=== PATIENT | male | born 1950 | race Caucasian/White ===

== ENCOUNTER 2019-09-02 23:17 | Emergency (ER) | payer MEDICARE, SELFPAY ==
[2019-09-02 23:19] VITALS: BP 168/81; PULSE 60; RESP 18; TEMP 36.8; O2SAT 94; BMI 35.4
--- NOTE | 2019-09-02 23:35 | RAD_ITS ---
STUDY: X-RAY - RIGHT SHOULDER REASON FOR EXAM: Male, 68 years old. Shoulder dislocation pain TECHNIQUE: 7 view(s) of the shoulder. COMPARISON: Post reduction radiographs. FINDINGS: There is inferior likely anterior shoulder dislocation. There are no acute fractures.. There is soft tissue edema. Normal visualized pulmonary apex. There is thoracic dextroscoliosis with multilevel degenerative changes. RAD/Shoulder min 2 Views IMPRESSION: Inferior likely anterior shoulder dislocation No acute fracture Soft tissue edema Thoracic dextroscoliosis with multilevel degenerative changes Electronically Signed: Baltazar Wright, at 1:18 EDT Tel , Service support ,
--- NOTE | 2019-09-02 23:36 | ED.VIS.GEN ---
History of Present Illness Chief Complaint: Upper Extremity Injury Informant: Patient Narrative: Stated that he fell at home just prior to arrival. He walks with a cane in the cane slipped out from under him. He has a history of polio in the past and has difficulty ambulating from that. He has pain in his right shoulder with difficulty moving it secondary to pain. He is unsure if he broke a bone. EMS was called and they splinted him and gave him a dose of fentanyl and brought him in for further evaluation. No previous injuries to the shoulder. Current severity is moderate. Worse with movement. Relieved with resting and splinting. Denies any elbow or distal hand or wrist injury Past Medical History - Allergies and Home Meds Allergies/Adverse Reactions: Allergies No Known Allergies Allergy (Verified 09/02/19 23:21) Primary Care Physician: Tamiko Mckeon,Out of [NON-STAFF] - Prior records reviewed: Yes Past Medical History: - - Hypertension, polio Surgical History: - - Left lower extremity orthopedic surgery Smoking Status: Never smoker Alcohol: None Drugs: None Review of Systems General: Denies: Chills, Fever, Sweats Eyes: Denies: Visual changes - bilaterally, Diplopia ENT: Denies: Rhinorrhea, Sore throat Cardiovascular: Denies: Chest pain, Palpitations Respiratory: Denies: Dyspnea, Cough, Dyspnea on exertion Gastrointestinal: Denies: Abdominal pain, Nausea, Vomiting, Diarrhea, Melena, Hematochezia Genitourinary: Denies: Dysuria, Hematuria, Frequency Musculoskeletal: Reports: Extremity Pain - see HPI. Denies: Back pain Skin: Denies: Rash, Wounds Neurological: Denies: Headache, Weakness, Numbness Physical Exam Vital Signs/Narrative: Vital Signs Temp Pulse Resp BP Pulse Ox 09/02/19 23:19 98.3 F 60 18 168/81 H 94 General: Well nourished, Well developed, No Acute Distress Head: Normocephalic, Atraumatic Eyes: Perrl, EOMI ENT: Moist mucous membranes, No rhinorrhea Neck: Supple, Nontender Cardiovascular: Regular rate, Regular rhythm, No murmurs Respiratory: No distress, CTA bilaterally, Chest nontender Abdomen: Soft, Nontender, Nondistended, Normal bowel sounds Back: Nontender, Normal Inspection Extremities: No edema, Tenderness - This in the right shoulder diffusely. Difficulty moving the arm secondary to pain. Distal neurovascular intact. No tenderness in the distal structures of the arm including elbow forearm wrist and hand.. Negative for: Nontender Skin: Normal color, No rash Neurological: Alert, Oriented x3, Cranial nerves II-XII grossly intact, Normal Strength, Normal Sensation Psychological: Normal affect, Normal Mood Diagnostic/Tx/Re-eval - Medical Decision Making given IV dose of Dilaudid. Ice pack applied. X-ray of the shoulder obtained.x-ray shows a shoulder dislocation. Patient consented with propofol for reduction. This was done incrementally with dosing up to 70 mg. Patient achieved good procedural sedation. Was placed on oxygen. Had no complications. The shoulder was easily reduced. Postreduction x-ray shows no fracture. Patient was placed in a sling and swath. Given a dose of Zofran for nausea. Will be discharged with Percocet and Zofran. He can follow-up back in [place] when he gets home with his orthopedist. Instructed to continue to use the sling and swath. ED Disposition - Plan for ED Patient: Diagnosis: Shoulder dislocation Instructions: DISLOCATION: SHOULDER (Reduced) Prescriptions: Oxycodone HCl/Acetaminophen [Percocet 5/325] 1 - 2 tab PO Q6H PRN PRN 3 Days #12 tab PRN Reason: Pain Prescription Printed Ondansetron [Zofran Odt] 4 mg PO Q8H PRN PRN #10 tab PRN Reason: Nausea Prescription Printed Referrals: [facility] Doctor,Out of [NON-STAFF] -
[2019-09-02] MEDS: HYDROmorphone 1 MG/ML Syringe IV (23:40)
[2019-09-03 00:29] VITALS: BP 175/85; PULSE 63; RESP 18; O2SAT 100
[2019-09-03 00:33] VITALS: BP 170/84; BP 177/75; PULSE 53; PULSE 66; RESP 16; RESP 18; O2SAT 100
--- NOTE | 2019-09-03 00:38 | RAD_ITS ---
HISTORY: Right shoulder dislocation POST REDUCTION ADDITIONAL HISTORY: None provided. COMPARISON: None TECHNIQUE: Right shoulder 3 views Number of images including paperwork: 3 FINDINGS: BONES: No acute fracture. JOINTS: Right shoulder dislocation has been reduced. Mild degenerative changes. SOFT TISSUES: No distinct foreign body. RAD/Shoulder min 2 Views IMPRESSION: Status post reduction of right shoulder dislocation. at 0124 Reported and signed by: Tiffani Pearl MD Electronically Signed: Tiffani Pearl MD at 1:23 EDT Tel , Service support ,
[2019-09-03 00:45] VITALS: BP 147/85; PULSE 68; RESP 18; O2SAT 100
[2019-09-03] MEDS: Propofol 200 MG/20 ML Vial IV BOLUS (00:48)
[2019-09-03 00:51] VITALS: BP 149/90; PULSE 79; RESP 16; O2SAT 95
[2019-09-03 00:58] VITALS: BP 149/90; PULSE 70; RESP 16; O2SAT 97
[2019-09-03] MEDS: Ondansetron 4 MG/2 ML Vial IV (01:14)
[2019-09-03 02:02] VITALS: BP 147/68; PULSE 72; RESP 18; O2SAT 97
== END 2019-09-03 02:02 | disposition home or self-care (01) ==
PROVIDERS: Emergency Provider Emergency Medicine
DX: S43.004A Unspecified dislocation of right shoulder joint, initial encounter (principal); W01.0XXA Fall on same level from slipping, tripping and stumbling without subsequent striking against object, initial encounter; Y93.01 Activity, walking, marching and hiking; Y92.009 Unspecified place in unspecified non-institutional (private) residence as the place of occurrence of the external cause
CPT/HCPCS: 23650; 73030; 96374; 96375; 99285; J7030; A4216; J2405